=== PATIENT | male | born 1970 | race Caucasian/White ===

== ENCOUNTER → 2022-04-29 | Outpatient (CLI) | payer OTHER | LOC: KOH-I 10:54 | DX: Z01.810 Encounter for preprocedural cardiovascular examination (principal) | CPT/HCPCS: 93926 ==

== ENCOUNTER → 2022-05-18 | Outpatient (CLI) | payer OTHER ==
[~2022-05-18] MED LIST: BUPRENORPHIN-N1 EACH PO; BUPRENORPHIN-N1 EACH SL; CLEOCIN HCL300 MG PO; IBUPROFEN800 MG PO; LOSARTAN POTASS50 MG PO; NEURONTIN300 MG PO; TRAZODONE HCL100 MG PO
[2022-05-18 14:05] LABS: HEMOGLOBIN 18.1 gm/dl (14.0-17.5); RED BLOOD COUNT 5.43 M/UL (4.20-5.50); WHITE BLOOD COUNT 8.4 K/UL (4.5-11.0)
[2022-05-18 14:29] LABS: BUN/CREATININE RATIO 14 (0-10)
== END ==
LOC: OPSV2 12:30
PROVIDERS: Orthopaedic Surgery
DX: Z01.818 Encounter for other preprocedural examination (principal); T87.89 Other complications of amputation stump; M79.662 Pain in left lower leg; Z88.0 Allergy status to penicillin
CPT/HCPCS: 71046; 80048; 83036; 85025; 85610; 85652; 85730; 86140; 93005